=== PATIENT | female | born 2000 | race Caucasian/White ===

== ENCOUNTER → 2021-12-19 | Day surgery (SDC) | payer OTHER ==
[~2021-12-19] MED LIST: ACETAMINOPHEN 1000 MG/100 ML IV ONE; ATROPINE SULFATE 1 MG/ML VIAL ONE; DEXAMETHASONE SOD PHOS INJ 4 MG/ML SDV ONE; EPINEPHRINE 1 MG/ML 30ML VIAL ONE; FENTANYL CITRATE/PF 100MCG/2 ML INJ ONE; MEPERIDINE HCL INJ 25 MG/ML VIAL ONE; MIDAZOLAM HCL 2 MG/2 ML VIAL ONE; ONDANSETRON HCL INJ 2MG/ML 2ML 2 MG/ML VIAL ONE; POVIDONE IODINE 0.05% 0.05 % ML PO ONE; PROPOFOL IV EMULSION 10 MG/ML 20 ML VIAL ONE; ROPIVACAINE 0.5% 5 MG/ML 30 ML SDV ONE; SEVOFLURANE INHAL SOLN 250 ML PEN BTL ONE
[2021-12-19 09:00] VITALS: BP 111/74
== END | disposition home or self-care (01) ==
LOC: OR 06:10
PROVIDERS: ATTEND Orthopaedic Surgery
DX: S43.021A Posterior subluxation of right humerus, initial encounter (principal); S43.031A Inferior subluxation of right humerus, initial encounter; F41.9 Anxiety disorder, unspecified; X58.XXXA Exposure to other specified factors, initial encounter
CPT/HCPCS: 29806; 81025; J0131; J0461; J0690; J1100; J2175; J2250; J2405; J2704; J2795; J3010